=== PATIENT | male | born 1955 | race Caucasian/White ===

== ENCOUNTER 2019-11-29 10:20 | Emergency (ER) | payer OTHER, SELFPAY ==
[2019-11-29] VITALS (14 sets, daily range): BP systolic 134–152; BP diastolic 76–93; PULSE 74–115; RESP 15–20; TEMP 37.5; O2SAT 97–100
--- NOTE | ~2019-11-29 | XR_ITS ---
EXAMINATION: XR chest 2V EXAM DATE: 11/29/2019 10:45 INDICATION: Heart palpitations. TECHNIQUE: Frontal and lateral projections of the chest obtained and reviewed. Comparison is made to prior examination from 06/24/2018. FINDINGS: The lungs are clear. There are no pleural effusions. The cardiomediastinal silhouette is within normal limits. There is no pneumothorax suspected. The bones and soft tissues are unremarkab le. IMPRESSION: No acute cardiopulmonary findings. Reviewed, dictated and finalized at location A.
--- NOTE | ~2019-11-29 | CT_ITS ---
EXAMINATION: CTA chest PE protocol EXAM DATE: 11/29/2019 12:02 INDICATION: Shortness of breath, tachycardia. Prostate cancer. TECHNIQUE: Spiral CTA of the chest (pulmonary arteries) was performed with 100 cc Omnipaque 350 intr avenous contrast injection. Images were acquired during the pulmonary arterial phase. Coronal maxi mum intensity projection 3D-reconstructions were created by the technologist on dedicated workstation . Axial, coronal and sagittal reformatted images were reviewed. The dose-length product (DLP) for t his examination was 342.51 mGy-cm. The exposure was tailored according to patient size (auto mA exp osure control), and iterative reconstruction (ASIR) was used as additional dose reduction technique. There is no prior study for comparison. FINDINGS: Pulmonary arteries are well opacified and without intraluminal filling defects. No thora cic aortic dissection. The lungs are clear. There are no pleural or pericardial effusions. Trach eobronchial tree is patent. There is no mediastinal, hilar or axillary lymphadenopathy. There is no pneumothorax. Heart normal in size. There is mild coronary arterial calcification, arterial sc lerosis. Hepatic steatosis. There is thoracic spondylosis without osteoblastic or osteolytic lesion s identified. IMPRESSION: 1. No pulmonary emboli or acute cardiopulmonary findings. 2. Hepatic steatosis. Reviewed, dictated and finalized at location A.
--- NOTE | 2019-11-29 10:25 | ECG_ITS ---
Measurements Intervals [place] Rate: 123 P: 82 VA: 178 QRS: 63 QRSD: 92 T: 69 QT: 278 QTc: 399 Interpretive Statements SINUS TACHYCARDIA DELAYED PRECORDIAL R/S TRANSITION BASELINE WANDER- AVR, AVL, V5 ABNORMAL ECG Electronically Signed On 11-29-2019 15:06:17 CDT by Puma Ma D.O.
--- NOTE | 2019-11-29 10:37 | ED.ARRPALP ---
HPI - Arrhythmia/Palpitations General Chief Complaint: Arrhythmia/Palpitations Stated Complaint: heart racing Time Seen by Provider: 11/29/19 10:23 Source: patient and family Mode of arrival: ambulatory Limitations: no limitations History of Present Illness HPI narrative: Patient is a 63-year-old man presents to emergency who presents to emergency department for evaluation of palpitations that began this morning coupled with anxiety patient had drank alcohol prior evening but denies intoxication patient notes that he slept fine last night and had felt fine prior day patient denies any pain recent illness patient does note anxiety with recent prostate cancer diagnosis with planned surgery in the near future. Patient on arrival appears acutely anxious but in no distress and does not appear uncomfortable. Patient has not taken anything for his symptoms. Patient notes a year ago he had experienced similar symptoms with no medications or other treatments had thorough evaluation to include cardiology with stress test echocardiogram cardiac enzymes and hospital admission Related Data Home Medications Medication Instructions Recorded Confirmed allopurinol DAILY 11/29/19 Allergies Allergy/AdvReac Type Severity Reaction Status Date / Time No Known Allergies Allergy Verified 11/29/19 10:41 Review of Systems Review of Systems: All systems reviewed & are unremarkable except as noted in HPI and below PMFSH Past Medical History Medical History (Updated 11/29/19 @ 12:53 by Alfonso Mckeon PA-C) Prostate cancer Social History Social History (Updated 11/29/19 @ 10:50 by Alfonso Mckeon PA-C) Smoking status: Never smoker Alcohol intake: current Substance use type: marijuana Living arrangements: with family Exam Narrative: Exam Narrative: GENERAL: Well-appearing, well-nourished, and in no acute distress. HEAD: Normocephalic, atraumatic. EYES: PERRLA and EOMI. ENT: Nares clear, no rhinorrhea or epistaxis. Mucous membranes moist. Oropharynx without tonsillar hypertrophy exudate or other lesions. NECK: Supple. No adenopathy or masses. CHEST: Clear to auscultation. No respiratory distress. No wheezes rales or rhonchi HEART: Tachycardic rate and regular rhythm. No murmur heard. Normal peripheral pulses. ABDOMEN: Soft, nontender, nondistended EXTREMITIES: Normal range of motion. No edema. SKIN: Warm, dry, no rash. NEURO: No focal deficits. Alert and oriented x3. PSYCH: Normal mood slightly anxious and normal affect. Course Course Emergency Course: Patient in the room at this time resting comfortably in no distress with resolution of symptoms with fluids and anti-anxiolytics patient felt appropriate for outpatient reevaluation by primary care patient provided with reasons to return felt appropriate for outpatient reevaluation by primary care Vital Signs Vital signs: Vital Signs Temperature 99.5 F 11/29/19 10:26 Pulse Rate 115 H 11/29/19 10:26 Respiratory Rate 18 11/29/19 10:26 Blood Pressure 152/93 H 11/29/19 10:26 Pulse Oximetry 97 11/29/19 10:26 Temperature 99.5 F 11/29/19 10:26 Pulse Rate 96 11/29/19 12:15 Respiratory Rate 15 11/29/19 12:15 Blood Pressure 145/83 H 11/29/19 11:46 Pulse Oximetry 99 11/29/19 12:15 MDM - Arrhythmia/Palpitations MDM Narrative Medical decision making narrative: Patients EKGs and labs are without significant high risk changes. Cardiac risk factors were reviewed. Patient is felt likely to be low risk for ACS and reasonable for further risk stratification testing as an outpatient. Patient is without pain and resting comfortably with all symptoms resolved. Negative CTA of the chest. A low-risk Wells criteria is noted. PE is felt to be unlikely. No pneumonia or URI symptoms were seen on evaluation today. Patient is felt to be resonable for continued evaluation as an outpatient. Lab Data Result diagrams: 11/29/19 10:33 11/29/19
[2019-11-29 10:45] LABS: Basophils Percent Auto 0.5 % (0.2-1.2); Eosinophils Percent Auto 0.3 % (0-4.4); Hematocrit 45.9 % (42.0-52.0); Hemoglobin 16.3 g/dL (14.0-18.0); Immature Granulocyte Absolute 0.03 K/mm3 (0.00-0.031); Immature Granulocyte Percent A 0.4 % (0-0.5); Immature Platelet Fraction Pct 4.1 % (0.9-11.2); Lymphocytes Absolute Auto 0.68 K/mm3 (0.9-3.2); Lymphocytes Percent Auto 8.9 % (18.3-44.2); Mean Corpuscular HGB Conc 35.5 g/dl (32-36); Mean Corpuscular Hemoglobin 34.7 pg (26-34); Mean Corpuscular Volume 97.7 fl (80-100); Mean Platelet Volume 10.2 fl (7.4-10.4); Monocytes Absolute Auto 0.5 K/mm3 (0.1-0.6); Neutrophils Absolute Auto 6.4 K/mm3 (1.3-6.7); Neutrophils Percent Auto 82.9 % (45.5-73.1); Platelet Count Result 136 k/mm3 (150-375); Red Cell Distribution Width 11.6 % (11.5-14.5); White Blood Count 7.7 K/mm3 (4.5-10.0)
[2019-11-29] MEDS: ASPIRIN 81 MG CHEWABLE TABLET 324 MG PO (10:50)
[2019-11-29] MEDS: LACTATED RINGERS 1,000 ML 999 ML IV CONT (10:50)
[2019-11-29 10:54] LABS: INR 1.1; Prothrombin Time 13.8 Seconds (11.1-14.7)
[2019-11-29] MEDS: FAMOTIDINE 20 MG/2 ML VIAL IV PUSH (10:54)
[2019-11-29 10:55] LABS: Partial Thromboplastin Time 28.4 SECONDS (22.3-36.8)
[2019-11-29] MEDS: LORazepam INJ (*CRX) 2 MG/ML VIAL 1 MG IV PUSH (10:55)
[2019-11-29 10:56] LABS: Anion Gap 12 mmol/L (8-16); Blood Urea Nitrogen 24 mg/dL (9-20); Calcium 9.7 mg/dL (8.4-10.2); Carbon Dioxide 26 mmol/L (22-30); Chloride 101 mmol/L (98-107); Estimated CRCL calculation 70 ml/min; Estimated Glomerular Filt Rate > 60; Glucose 135 mg/dL (75-110); Potassium 4.2 mmol/L (3.4-5.0); Sodium 139 mmol/L (137-145)
[2019-11-29 10:57] LABS: D Dimer 1.18 ug/mL (<0.48)
[2019-11-29 11:08] LABS: Troponin I < 0.012 ng/mL (0.000-0.034)
--- NOTE | 2019-11-29 11:54 | PC.NURSE ---
Pt in CT.
[2019-11-29 12:00] LABS: Amphetamine Screen Urine Negative (Negative); Barbiturate Screen Urine Negative (Negative); Benzodiazepines Screen Urine Negative (Negative); Cannabinoid Screen Urine Positive (Negative); Cocaine Screen Urine Negative (Negative); Methadone Screen Urine Negative (Negative); Opiate Screen Urine Negative (Negative); Phencyclidine Screen Urine Negative (Negative)
[2019-11-29] MEDS: SODIUM CHLORIDE 0.9% IV 1,000 ML 999 ML IV CONT (12:10)
== END 2019-11-29 13:19 | disposition home or self-care (01) ==
PROVIDERS: Emergency Medicine Emergency Medical Services; Emergency Provider Emergency Medicine; PCP Family Medicine Adolescent Medicine
DX: R00.2 Palpitations (principal); Z85.46 Personal history of malignant neoplasm of prostate; R00.0 Tachycardia, unspecified; K76.0 Fatty (change of) liver, not elsewhere classified; Z79.899 Other long term (current) drug therapy
CPT/HCPCS: 36415; 71046; 71275; 80048; 80307; 84484; 85025; 85055; 85380; 85610; 85730; 93005; 96361; 96374; 96375; 99284; A9270; J2060; J7030; J7120; Q9967

== ENCOUNTER 2019-12-05 11:44 | Outpatient (CLI) | payer OTHER, SELFPAY ==
--- NOTE | 2019-12-05 12:37 | ECG_ITS ---
Measurements Intervals [place] Rate: 85 P: 61 OR: 159 QRS: -3 QRSD: 92 T: 29 QT: 352 QTc: 419 Interpretive Statements SINUS RHYTHM VENTRICULAR PREMATURE COMPLEX DELAYED PRECORDIAL R/S TRANSITION BASELINE ARTIFACT- III, AVR, AVL, V2-V3 BORDERLINE ECG Electronically Signed On 12-05-2019 12:56:46 CDT by Puma Ma D.O.
[2019-12-05 13:05] LABS: Alanine Aminotransferase 73 U/L (4-50); Albumin Level 4.6 g/dL (3.5-5.1); Alkaline Phosphatase 72 U/L (38-126); Anion Gap 8 mmol/L (8-16); Aspartate Amino Transferase 81 U/L (17-59); Bilirubin,Total 1.2 mg/dL (0.2-1.3); Blood Urea Nitrogen 18 mg/dL (9-20); Calcium 9.6 mg/dL (8.4-10.2); Carbon Dioxide 31 mmol/L (22-30); Chloride 100 mmol/L (98-107); Estimated Glomerular Filt Rate > 60; Glucose 113 mg/dL (75-110); Potassium 4.4 mmol/L (3.4-5.0); Sodium 139 mmol/L (137-145)
== END 2019-12-05 11:45 | disposition home or self-care (01) ==
LOC: ANHSURGERY 11:46
PROVIDERS: PCP Internal Medicine; Visit Provider Urology
DX: Z01.818 Encounter for other preprocedural examination (principal); C61 Malignant neoplasm of prostate
CPT/HCPCS: 36415; 80053; 86850; 86900; 86901; 87086; 93005

== ENCOUNTER 2019-12-13 00:20 | Outpatient (CLI) | payer OTHER, SELFPAY ==
[2019-12-13 17:37] LABS: SARS-CoV-2 RNA PCR Negative
== END 2019-12-13 00:21 | disposition home or self-care (01) ==
LOC: ANHCOVIDDT 00:21
PROVIDERS: PCP Internal Medicine; Visit Provider Urology
DX: Z01.812 Encounter for preprocedural laboratory examination (principal); Z20.828 Contact with and (suspected) exposure to other viral communicable diseases
CPT/HCPCS: 87635; C9803; U0003

== ENCOUNTER 2019-12-17 13:15 | Observation (INO) | payer OTHER, SELFPAY ==
[2019-12-05 11:59] VITALS: BP 160/84; PULSE 80; RESP 16; TEMP 37.5; O2SAT 100; BMI 23.1
--- NOTE | 2019-12-15 15:11 | WPDANESEPPF ---
Anes - Initial Pre Proc Eval Procedure: Operation Date: 12/16/19 07:30 Proposed Procedures p Robotic Assisted Nerve Sparing Prostatectomy with Possible Pelvic Lymph Node Dissection - Camilo Quesada MD Date/Time: 12/15/19 15:11 Surgeon: Camilo Quesada MD Pre Op Diagnosis: prostate CA Patient Data Age: 63 Gender: M Height: 1.8 m Weight: 75 kg Last Vital Signs Temp 37.5 C 12/05/19 11:59 Pulse 80 12/05/19 11:59 Resp 16 12/05/19 11:59 BP 160/84 H 12/05/19 11:59 Pulse Ox 100 12/05/19 11:59 Allergies Allergy/AdvReac Type Severity Reaction Status Date / Time No Known Allergies Allergy Verified 12/05/19 11:54 Home Medications Medication Instructions Recorded Confirmed Type allopurinol 300 mg PO QAM 11/29/19 12/05/19 History cholecalciferol (vitamin D3) 50 mcg PO DAILY 12/05/19 12/05/19 History turmeric 500 mg PO QAM 12/05/19 12/05/19 History PMFSH Past Medical History Medical History (Updated 11/30/19 @ 00:00 by Yessi Ron) Prostate cancer Social History Social History (Updated 11/29/19 @ 10:50 by Alfonso Mckeon PA-C) Smoking status: Never smoker Second hand tobacco smoke exposure: No Alcohol intake: current Drinks per week: 7 Substance use: current Substance use type: marijuana Other substance usage details: GUMMAES Spiritual care concerns: No Anes - Eval Final PreProcedure Day of Procedure 12/15/19 15:11 Patient weight: normal Heart: regular rate and rhythm Lungs: clear to auscultation and normal air movement Airway: Mallampati scale class II Neurological: alert and oriented Last oral intake: >/= 8 hours ASA classification: III Emergent: no Anesthetic plan: proceed Anesthesia type and monitoring: general ETT Informed Consent: The patient's anesthetic plan and its attendant risks and benefits were discussed with the patient/family/POA. Questions were solicited and answers provided to the satisfaction of the patient/family/POA.
[2019-12-16] VITALS (18 sets, daily range): BP systolic 103–136; BP diastolic 51–82; PULSE 70–98; RESP 9–22; TEMP 36.4–36.9; O2SAT 92–100
--- NOTE | 2019-12-16 07:05 | WPDANESEPPF ---
Anes - Initial Pre Proc Eval Procedure: Operation Date: 12/16/19 07:30 Proposed Procedures p Robotic Assisted Nerve Sparing Prostatectomy with Possible Pelvic Lymph Node Dissection - Camilo Quesada MD Date/Time: 12/16/19 07:05 Surgeon: Camilo Quesada MD Pre Op Diagnosis: prostate CA Patient Data Age: 63 Gender: M Height: 5 ft 11 in Weight: 71.3 kg Last Vital Signs Temp 97.5 F L 12/16/19 06:14 Pulse 98 12/16/19 06:14 Resp 20 12/16/19 06:14 BP 125/82 12/16/19 06:14 Pulse Ox 100 12/16/19 06:14 Allergies Allergy/AdvReac Type Severity Reaction Status Date / Time No Known Allergies Allergy Verified 12/16/19 06:19 Home Medications Medication Instructions Recorded Confirmed Type allopurinol 300 mg PO QAM 11/29/19 12/16/19 History cholecalciferol (vitamin D3) 50 mcg PO DAILY 12/05/19 12/16/19 History turmeric 500 mg PO QAM 12/05/19 12/16/19 History metoprolol tartrate 12.5 mg PO BID 12/16/19 12/16/19 History Patient hx anesthesia problems: none Family hx anesthesia problems: none [facility] Past Medical History Medical History (Updated 12/16/19 @ 07:05 by Danny Fabian MD) Anxiety Arthritis Prostate cancer Social History Social History (Updated 11/29/19 @ 10:50 by Alfonso Mckeon PA-C) Smoking status: Never smoker Second hand tobacco smoke exposure: No Alcohol intake: current Drinks per week: 7 Alcohol use details: VODKA Substance use: current Substance use type: marijuana Other substance usage details: ZAIDA Living arrangements: with family Spiritual care concerns: No Anes - Eval Final PreProcedure Day of Procedure 12/16/19 07:05 Patient weight: normal Heart: regular rate and rhythm Lungs: clear to auscultation Airway: Mallampati scale class II Neurological: alert and oriented Last oral intake: >/= 8 hours ASA classification: III Emergent: no Anesthetic plan: proceed Anesthesia type and monitoring: general ETT and standard monitoring Informed Consent: The patient's anesthetic plan and its attendant risks and benefits were discussed with the patient/family/POA. Questions were solicited and answers provided to the satisfaction of the patient/family/POA.
--- NOTE | 2019-12-16 07:15 | WPDHPUPDATE1 ---
History and Physical Update Update Date/Time: 12/16/19 07:15 History and Physical has been reviewed, including an updated exam of the patient. There are NO changes in the patient's condition. Risks, benefits, and alternatives have been discussed and questions answered. Patient agrees to proceed with procedure. Proceed with robotic assist nerve sparing prostatectomy with possible PLND
--- NOTE | 2019-12-16 07:20 | SUR.PREOP ---
Dr Fabian aware no stress test results/okay to proceed per Chanel Matamoros RN
[2019-12-16] MEDS: ceFAZolin 2 GM/D5W 50 ML 2 GM/50 ML BAG IVPB (07:29)
--- NOTE | 2019-12-16 11:54 | PM.PROC ---
Procedure Note - Detailed Date of procedure: 12/16/19 Pre-op diagnosis: prostate CA Post-op diagnosis: same Procedure performed: Robotic assisted nerve-sparing prostatectomy with right pelvic lymph node dissection Description of procedure: Patient is taken to the operative suite and correctly identified. Once anesthesia was obtained was placed in the low lying dorsal lithotomy position. He was prepped and draped usual sterile fashion. Eighteen Mongolian Armando was inserted with 30 cc in the balloon. Incision was made supraumbilical and carried down to the rectus fascia. Veress needle was inserted into the abdomen and the abdomen was insufflated to 15 mmHg pressure. We then placed the camera port under direct vision. We placed our working ports in the standard locations. Patient was placed in steep Trendelenburg position and the robot was docked. Posterior approach was then done. We did take down some adhesions of the left colon. The seminal vesicles were dissected out in their entirety the vessels were transected. The plane between the prostate and rectum developed. Bladder was then taken to standard fashion. Space of Retzius was developed bilaterally. 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 This was dissected off of the prostate. It was nicely spared. Both endopelvic fascia were then also incised. Puboprostatic were taken down. Dorsal venous complex was isolated using an 0 Vicryl. This was secured to the pubic bone. At the termination of procedure we did place a V- lock suture through the dorsal venous complex for added hemostasis. The bladder neck was then transected it was a bladder neck sparing procedure. Posterior bladder neck was transected also. The previously dissected seminal vesicles and vas were found. Bilateral nerve-sparing was performed in standard fashion. The pedicles were secured using clips. Prostate was lifted off the rectum. Dorsal venous complex was then transected. Urethra was also transected. It had a nice urethral stump. We then did a right pelvic lymph node dissection with the borders being Jet's ligament bifurcation of the vessels obturator nerve and external iliac vein. Surgicel was then placed in the fossa. The packet as well as the prostate was placed in Endo-Catch bag. We then reapproximated the bladder neck to the urethral stump using V lock suture in a running fashion. There was good mucosa to mucosa approximation. Eighteen Mongolian Armando was placed inflated with 10 cc of sterile water. We filled the bladder with 180 cc in the was no evidence of extravasation. All lap count needle count sponge counts were correct. A JAJA drain was then placed through the working port site on the right. This was secured. The trocars were then removed. The Endo-Catch bag was brought out through the midline incision. This was closed using 0 Vicryl in a running fashion. Subcuticular stitches were then placed. Patient tolerated procedure well without complications and was taken recovery stable condition. We did anesthetize the incision and port sites using lidocaine. Surgeon: Camilo Quesada MD Estimated blood loss (mL): 300 Drains: Yes Packing: No Pathology: yes Complications: No immediate complications Condition: stable Disposition: PACU
[2019-12-16] MEDS: LACTATED RINGERS 1,000 ML 30 ML IV CONT ×3 (12:12→13:05)
[2019-12-16] MEDS: fentaNYL CITRATE INJ (*CRX) 100 MCG/2 ML VIAL 25 MCG IV PUSH ×8 (13:07→13:50)
--- NOTE | 2019-12-16 14:23 | PC.NURSE ---
This patient, Juan Vyas, was admitted to [facility] Surg Room 304-01 on 12/16/19 @ 4399. Patient/family oriented to hospital policies and general routines including ID bracelet, bed and alarms, visiting hours, pain management, procedures, bathroom and other care routines, personal items, smoking policy, room service/diet, and visiting hours. Information on how to activate the Rapid Response Team has been discussed. Patient/Family are encouraged to report perceived risks to care and to ask questions if they do not understand what they are told or what they should do.
[2019-12-16] MEDS: LACTATED RINGERS 1,000 ML 125 ML IV CONT ×2 (14:51→22:54)
[2019-12-16] MEDS: HYDROcodone/acetaminophen (*CRX) 5-325 MG TABLET 1 TAB PO (16:48)
[2019-12-17] VITALS: BP 110/57; PULSE 88; RESP 16; TEMP 37.1; O2SAT 98
--- NOTE | ~2019-12-17 | US_ITS ---
EXAMINATION: US pelvic limited DATE: 12/17/2019 11:09 INDICATION: Gross hematuria with clots status post prostatectomy. TECHNIQUE: Multiple transabdominal sonographic images of the pelvis were obtained. COMPARISON: None. FINDINGS: There is a Armando catheter in the bladder. There is no hematoma. IMPRESSION: 1. Normal bladder with Armando catheter in expected position. Reviewed, dictated and finalized at location A.
[2019-12-17] MEDS: HYDROcodone/acetaminophen (*CRX) 5-325 MG TABLET 1 TAB PO ×2 (01:13→12:31)
[2019-12-17 04:00] VITALS: BP 119/53; PULSE 76; RESP 16; TEMP 36.8; O2SAT 100
[2019-12-17] MEDS: KETOROLAC 30 MG/ML VIAL (*BKC) IV PUSH (05:15)
[2019-12-17 06:36] LABS: Hematocrit 37.3 % (42.0-52.0); Hemoglobin 12.7 g/dL (14.0-18.0)
[2019-12-17 06:47] LABS: Anion Gap 4 mmol/L (8-16); Blood Urea Nitrogen 12 mg/dL (9-20); Calcium 8.2 mg/dL (8.4-10.2); Carbon Dioxide 31 mmol/L (22-30); Chloride 100 mmol/L (98-107); Estimated CRCL calculation 82 ml/min; Estimated Glomerular Filt Rate > 60; Glucose 106 mg/dL (75-110); Sodium 135 mmol/L (137-145)
[2019-12-17] MEDS: LACTATED RINGERS 1,000 ML 125 ML IV CONT ×3 (07:19→23:10)
[2019-12-17] MEDS: WATER FOR IRRIGATION, STERILE 1,000 ML BOTTLE 1000 ML ×2 (08:45→13:14)
[2019-12-17 10:00] VITALS: BP 140/63; PULSE 82; RESP 18; TEMP 36.9; O2SAT 99
--- NOTE | 2019-12-17 13:03 | WPDUROPN2 ---
Progress Note: A&P Assessment and Plan (1) Gross hematuria: Code(s): R31.0 - Gross hematuria Status: Acute Assessment and Plan: Patient's rosas was irrigated manually with 600cc of Sterile Water this morning, many small clots were extracted, irrigated easily, rosas was in place and draining well but with salazar red colored urine. I sent him for an US to confirm that no larger clots were present, it was negative. He was then irrigated a second time this afternoon by Dr. Eden and many more clots were present, irrigated easily but urine cleared to a pink color and continues to drain well. No further intervention at this time, may irrigate PRN. (2) Prostate cancer: Code(s): C61 - Malignant neoplasm of prostate Status: Acute Assessment and Plan: Other than gross hematuria, patient is doing well, passing flatus, tolerating diet well, and pain is controlled with medications. We will keep him overnight to monitor gross hematuria and re-assess in the morning. Subjective Subjective Date/Time Seen: 12/17/19 13:03 POD #1 Robotic assisted nerve-sparing prostatectomy with right pelvic lymph node dissection Review of Systems Cardiovascular: Cardiovascular: Denies chest pain Respiratory: Respiratory: Denies no additional respiratory complaints Gastrointestinal: Gastrointestinal: Reports abdominal pain (at incision site), Denies nausea and Denies vomiting Genitourinary: Genitourinary: Reports hematuria Exam Resp: Effort & Inspection: normal respiratory effort Cardio: Rate: regular rate GI: GI Palp: Yes Soft to palpation and Yes Tenderness to palpation present (GI) (at incision sites, all are well approximated, no redness, drainage or edema) Urinary Catheter: Urinary Catheter: patent and draining, urine red and urine with clots Extrem: General: no edema Objective Data Vital Signs Vital Signs: Vital Signs - 24 hr 12/16/19 13:15 12/16/19 13:30 12/16/19 13:45 Temperature Pulse Rate 79 80 74 Respiratory Rate 19 22 H 15 Blood Pressure 111/67 106/64 119/71 Pulse Oximetry 92 94 97 12/16/19 14:00 12/16/19 14:13 12/16/19 14:25 Temperature 97.8 F Pulse Rate 88 85 80 Respiratory Rate 12 12 18 Blood Pressure 114/67 110/65 120/71 Pulse Oximetry 100 100 100 12/16/19 14:40 12/16/19 15:00 12/16/19 16:00 Temperature 97.5 F L 97.5 F L Pulse Rate 90 83 94 Respiratory Rate 18 18 18 Blood Pressure 123/77 135/65 Pulse Oximetry 100 99 100 12/16/19 16:10 12/16/19 18:00 12/16/19 20:00 Temperature 97.8 F 98.5 F 98.1 F Pulse Rate 94 96 92 Respiratory Rate 18 18 20 Blood Pressure 136/77 130/68 109/51 L Pulse Oximetry 100 99 100 12/17/19 00:00 12/17/19 04:00 12/17/19 10:00 Temperature 98.8 F 98.3 F 98.4 F Pulse Rate 88 76 82 Respiratory Rate 16 16 18 Blood Pressure 110/57 L 119/53 L 140/63 Pulse Oximetry 98 100 99 Intake/Output Intake/Output: Intake & Output 12/14/19 12/15/19 12/16/19 12/17/19 23:59 23:59 23:59 23:59 Intake Total 4330 2200 Output Total 3550 900 Balance 780 1300 Meds/Results Medications: Active Medications Generic Name Dose Route Start Last Admin Trade Name Freq PRN Reason Stop Dose Admin Hydrocodone Bitart/Acetaminophen 1 tab 12/16/19 14:15 12/17/19 12:31 Hydrocodone/Acetaminophen (*Crx) 5-325 Mg Tablet PO 1 tab Q6H PRN Administration Pain Rated 1-3 Hydrocodone Bitart/Acetaminophen 2 tab 12/16/19 14:15 Hydrocodone/Acetaminophen (*Crx) 5-325 Mg Tablet PO Q6H PRN Pain Rated 4-6 Hyoscyamine 0.125 mg 12/16/19 14:15 Hyoscyamine Sulfate 0.125 Mg Tablet SUBLINGUAL Q4H PRN Bladder Spasm Lactated Ringer's 1,000 mls @ 125 mls/hr 12/17/19 13:05 Lr - Lactated Ringers Iv IV CONT .Q8H ROBSON Ketorolac Tromethamine 30 mg 12/16/19 14:15 12/17/19 05:15 Ketorolac 30 Mg/Ml Vial (*Bkc) IV PUSH 12/17/19 14:16 30 mg Q6H PRN Administration Pain Rated 4-6 Levofloxacin 500 mg 1
--- NOTE | 2019-12-17 13:06 | WPDANESPN ---
Anes - Prog Note Post-Op Date/Time: 12/17/19 13:06 Cardiovascular status: normal Respiratory status: normal Airway patency: baseline Mental status: baseline Post-Op hydration status: normal Vital Signs: Last Vital Signs Temp 98.4 F 12/17/19 10:00 Pulse 82 12/17/19 10:00 Resp 18 12/17/19 10:00 BP 140/63 12/17/19 10:00 Pulse Ox 99 12/17/19 10:00 Pain Score (VAS): 0/10 I/O: Intake & Output 12/16/19 12/17/19 12/17/19 23:59 07:59 15:59 Intake Total 3180 2200 700 Output Total 3255 900 Balance -75 1300 700 Laboratory Tests 12/17/19 05:50 12/17/19 05:50 12/17/19 12/17/19 05:50 05:50 Hgb 12.7 L D Hct 37.3 L Sodium 135 L Potassium 4.0 Chloride 100 Carbon Dioxide 31 H Anion Gap 4 L BUN 12 D Creatinine 0.80 Estim Creat Clear Calc 82 Estimated GFR > 60 Glucose 106 Calcium 8.2 L Post-procedural complaints: none Patient Feedback: Patient satisfied with anesthetic care.
[2019-12-17 14:00] VITALS: BP 122/69; PULSE 95; RESP 18; TEMP 37.5; O2SAT 100
[2019-12-17] MEDS: HYDROcodone/acetaminophen (*CRX) 5-325 MG TABLET 2 TAB PO ×2 (17:31→22:31)
[2019-12-17 20:32] VITALS: PULSE 80
[2019-12-17] MEDS: METOPROLOL TARTRATE 12.5 MG TABLET PO (20:32)
[2019-12-17 21:51] VITALS: BP 123/72; PULSE 81; RESP 18; TEMP 37; O2SAT 100
[2019-12-18] MEDS: HYDROcodone/acetaminophen (*CRX) 5-325 MG TABLET 2 TAB PO (03:47)
[2019-12-18 05:51] VITALS: BP 131/66; PULSE 71; RESP 18; TEMP 36.8; O2SAT 99
[2019-12-18] MEDS: LACTATED RINGERS 1,000 ML 125 ML IV CONT (07:25)
[2019-12-18 08:00] VITALS: PULSE 71; RESP 18; O2SAT 99
--- NOTE | 2019-12-18 08:32 | WPDUROPN2 ---
Progress Note: A&P Assessment and Plan (1) Gross hematuria: Code(s): R31.0 - Gross hematuria Status: Acute Assessment and Plan: Resolved, urine is light pink, no clots present and draining to gravity. (2) Prostate cancer: Code(s): C61 - Malignant neoplasm of prostate Status: Acute Assessment and Plan: Patient is tolerating diet, passing flatus and pain is controlled with pain medicaitons. Ok to discharge home today with leg bag. Remove JAJA drain. Subjective Subjective Date/Time Seen: 12/18/19 08:32 POD #2 Robotic assisted nerve-sparing prostatectomy with right pelvic lymph node dissection Review of Systems Cardiovascular: Cardiovascular: Denies chest pain Respiratory: Respiratory: Reports no additional respiratory complaints Gastrointestinal: Gastrointestinal: Denies abdominal pain, Denies nausea and Denies vomiting Genitourinary: Genitourinary: Reports hematuria Exam Resp: Effort & Inspection: normal respiratory effort Cardio: Rate: regular rate GI: GI Palp: Yes Soft to palpation and Yes Tenderness to palpation present (GI) (at incisions only) Urinary Catheter: Urinary Catheter: patent and draining, urine clear and urine pink Extrem: General: no edema Objective Data Vital Signs Vital Signs: Vital Signs - 24 hr 12/17/19 10:00 12/17/19 14:00 12/17/19 20:32 Temperature 98.4 F 99.5 F Pulse Rate 82 95 80 Respiratory Rate 18 18 Blood Pressure 140/63 122/69 Pulse Oximetry 99 100 12/17/19 21:51 12/18/19 05:51 Temperature 98.6 F 98.3 F Pulse Rate 81 71 Respiratory Rate 18 18 Blood Pressure 123/72 131/66 Pulse Oximetry 100 99 Intake/Output Intake/Output: Intake & Output 12/15/19 12/16/19 12/17/19 12/18/19 23:59 23:59 23:59 23:59 Intake Total 4330 6380 2450 Output Total 3550 3300 3750 Balance 780 3080 -1300 Meds/Results Medications: Active Medications Generic Name Dose Route Start Last Admin Trade Name Freq PRN Reason Stop Dose Admin Hydrocodone Bitart/Acetaminophen 1 tab 12/16/19 14:15 12/17/19 12:31 Hydrocodone/Acetaminophen (*Crx) 5-325 Mg Tablet PO 1 tab Q6H PRN Administration Pain Rated 1-3 Hydrocodone Bitart/Acetaminophen 2 tab 12/16/19 14:15 12/18/19 03:47 Hydrocodone/Acetaminophen (*Crx) 5-325 Mg Tablet PO 2 tab Q6H PRN Administration Pain Rated 4-6 Allopurinol 300 mg 12/18/19 09:00 Allopurinol 300 Mg Tablet PO QAM [facility] Hyoscyamine 0.125 mg 12/16/19 14:15 Hyoscyamine Sulfate 0.125 Mg Tablet SUBLINGUAL Q4H PRN Bladder Spasm Lactated Ringer's 1,000 mls @ 125 mls/hr 12/17/19 13:05 12/18/19 07:25 Lr - Lactated Ringers Iv IV CONT 125 mls/hr .Q8H ROBSON Administration Levofloxacin 500 mg 12/17/19 09:00 12/17/19 12:31 Levofloxacin Tab 500 Mg Tablet PO 500 mg DAILY [facility] Administration Metoprolol Tartrate 12.5 mg 12/17/19 21:00 12/17/19 20:32 Metoprolol Tartrate 12.5 Mg Tablet PO 12.5 mg Q12HR [facility] Administration Morphine Sulfate 1 mg 12/16/19 14:15 Morphine Sulfate (*Crx) 2 Mg/Ml Inj IV PUSH Q2H PRN Pain Rated 7-10 Morphine Sulfate 2 mg 12/16/19 14:15 Morphine Sulfate (*Crx) 2 Mg/Ml Inj IV PUSH Q2H PRN Pain Rated 7-10 Naloxone HCl 0.1 mg 12/16/19 14:15 Naloxone Hcl 0.4 Mg/Ml Vial IV PUSH Q2M PRN Opiate Reversal Non-Formulary Medication 500 mg 12/18/19 09:00 Turmeric PO 01/17/20 09:[facility] [place] 4 mg 12/16/19 14:15 Ondansetron Inj 4 Mg/2 Ml Vial IV PUSH Q6H PRN Nausea And Vomiting Vitamin D 2,000 units 12/18/19 09:00 Cholecalciferol 1,000 Units Tablet PO DAILY [facility] Radiology Results: ITS Impressions Pelvis Ultrasound 12/17/19 11:10 IMPRESSION: 1. Normal bladder with Armadno catheter in expected position.
--- NOTE | 2019-12-18 08:38 | PM.DS ---
DS: Admitting Diagnosis Admitting Diagnosis Admitting Diagnosis: prostate CA DS: Summary Time Spent with Patient Time attestation: Pre Op Diagnosis: Prostate Cancer Post Operative Diagnosis: Prostate Cancer Patient underwent a Robotic assisted nerve-sparing prostatectomy with right pelvic lymph node dissection on 12/16/[address] Suyapa Quesada. He tolerated the procedure well and was transferred to recovery in stable condition. He then was transferred to the floor for further recovery. He has managed to handle his pain well with medications, is tolerating diet and passing flatus at this time. He did have gross hematuria with clots POD #1, which resolved with manual irrigation. His urine is pink without clots today. He is to be discharged home, on diet as tolerated, activity no straining, will resume all home medications including Hydrocodone, stool softeners and antibiotics. He will follow up next Sunday for a cystogram and then to the office to hopefully remove his rosas. Exam Resp: Effort & Inspection: normal respiratory effort Cardio: Rate: regular rate GI: Inspection: incision (well approximated, no redness or edema present, JAJA drain minmial output) Urinary Catheter: Urinary Catheter: patent and draining, urine clear and urine pink Extrem: General: no edema DS: Data Data Completed and Pending Pending studies at discharge: Pending at discharge 12/16/19 10:50 Surgical [PTH] Routine Discharge Plan Discharge Attending physician on discharge: Camilo Quesada Discharging Clinician: Gianna Desai Anticipated Discharge Date/Time: 12/18/19 08:35 Patient Disposition: Home, Self-Care Activity: may shower, no straining and may drive after 2 weeks Diet: as tolerated Wound Care Instructions: remove dressing to shower and change dressing daily Discharge Instructions: Call if you develop a fever of >102, incisions appear to have drainage or are not well approximated, have redness or feel hot to touch. Change drain site dressing daily and PRN, wash with soap and water gently and pat dry. Do not remove surgical glue on other incisions. Follow up next Sunday after Cystogram in the office for rosas removal pending cystogram results. Patient Instructions: Pain Management (DC), Rosas Catheter Placement and Care (DC), Will-Faulkner Drain Care (DC), JORGITO Hose (DC), Urinary Leg Bag (GEN), Robot Assisted Laparoscopic Prostatectomy (DC), How to Change a Catheter Drainage Bag (DC) Follow-up/Referrals: Camilo Quesada MD [Physician] - Discharge Medications: Continued cholecalciferol (vitamin D3) 50 mcg (2,000 unit) Tablet 50 mcg PO DAILY RF: 0 turmeric 400 mg Capsule 500 mg PO QAM RF: 0 metoprolol tartrate 25 mg Tablet 12.5 mg PO BID RF: 0 allopurinol 300 mg tablet 300 mg PO QAM RF: 0 Date of admission: 12/17/19 13:15 Primary Care Provider: Codie,Sheron Admitting Provider: Camilo Quesada Attending physician on admission: Camilo Quesada
[2019-12-18] MEDS: allopurinoL 300 MG TABLET PO (09:09)
[2019-12-18] MEDS: CHOLECALCIFEROL 1,000 UNITS TABLET 2000 UNITS PO (09:09)
[2019-12-18] MEDS: METOPROLOL TARTRATE 12.5 MG TABLET PO (09:10)
[2019-12-18] MEDS: HYDROcodone/acetaminophen (*CRX) 5-325 MG TABLET 1 TAB PO ×2 (09:16→12:29)
== END 2019-12-18 12:30 | disposition home or self-care (01) ==
LOC: ANHSURGERY 13:35 → ANH3MEDSUR 13:35
PROVIDERS: Admitting Provider Urology; PCP Internal Medicine; Visit Provider Urology
PROC: 0VT04ZZ Resection of Prostate, Percutaneous Endoscopic Approach (ICD-10-PCS; CPT 55867; principal; 2019-12-16 07:30)
DX: C61 Malignant neoplasm of prostate (principal)
CPT/HCPCS: 55866; 38571; S2900; 36415; 76857; 80048; 85014; 85018; 88305; 88307; A9270; G0378; J0690; J1100; J1885; J2250; J2370; J2405; J2704; J2710; J3010; J7030; J7120

== ENCOUNTER 2019-12-24 08:57 | Outpatient (CLI) | payer OTHER, SELFPAY ==
--- NOTE | ~2019-12-24 | XR_ITS ---
XR cystogram DATE: 12/24/2019 09:52 INDICATION: Prostate cancer. One week postoperative from prostatectomy TECHNIQUE: Fluoroscopy and spot radiographs during filling and emptying of the urinary bladder with r adiopaque contrast material by gravity via an existing Armando catheter 1.3 minutes fluoroscopy time DAP: 22.65 13 images COMPARISON: None FINDINGS: The bladder accommodated 350 cc of dilute Omnipaque 350 intravenous contrast material. Small diverticulum is noted at the superolateral right side of the urinary bladder. No filling defect of the urinary bladder is noted. No vesicoureteral reflux or extravasation of contr ast material. IMPRESSION: No extravasation of contrast material from the urinary bladder Reviewed, dictated and finalized at [facility] Reviewed, dictated and finalized at [facility].
== END 2019-12-24 08:58 | disposition home or self-care (01) ==
PROVIDERS: PCP Internal Medicine; Visit Provider Urology
DX: C61 Malignant neoplasm of prostate (principal)
CPT/HCPCS: 51600; 74430; Q9967

== ENCOUNTER 2020-09-27 11:17 | Outpatient (CLI) | payer MEDICARE, SELFPAY ==
[2020-09-27 11:45] LABS: Basophils Percent Auto 0.6 % (0.2-1.2); Eosinophils Absolute Auto 0.1 K/mm3 (0-0.3); Hematocrit 44.2 % (42.0-52.0); Hemoglobin 15.3 g/dL (14.0-18.0); Immature Granulocyte Absolute 0.05 K/mm3 (0.00-0.031); Immature Granulocyte Percent A 0.7 % (0-0.5); Lymphocytes Absolute Auto 1.27 K/mm3 (0.9-3.2); Lymphocytes Percent Auto 18.5 % (18.3-44.2); Mean Corpuscular HGB Conc 34.6 g/dl (32-36); Mean Corpuscular Hemoglobin 34.1 pg (26-34); Mean Corpuscular Volume 98.4 fl (80-100); Mean Platelet Volume 9.4 fl (7.4-10.4); Monocytes Absolute Auto 0.7 K/mm3 (0.1-0.6); Monocytes Percent Auto 10.6 % (2.6-8.5); Neutrophils Absolute Auto 4.7 K/mm3 (1.3-6.7); Neutrophils Percent Auto 68.6 % (45.5-73.1); Platelet Count Result 155 k/mm3 (150-375); Red Blood Count 4.49 M/mm3 (4.6-6.20); Red Cell Distribution Width 11.6 % (11.5-14.5); White Blood Count 6.9 K/mm3 (4.5-10.0)
[2020-09-27 17:10] LABS: Alanine Aminotransferase 36 U/L (4-50); Albumin Level 4.6 g/dL (3.5-5.1); Alkaline Phosphatase 87 U/L (38-126); Anion Gap 8 mmol/L (8-16); Aspartate Amino Transferase 47 U/L (17-59); Bilirubin,Total 1.3 mg/dL (0.2-1.3); Blood Urea Nitrogen 25 mg/dL (9-20); Carbon Dioxide 28 mmol/L (22-30); Chloride 101 mmol/L (98-107); Estimated Glomerular Filt Rate > 60; Glucose 98 mg/dL (65-110); Sodium 137 mmol/L (137-145)
[2020-09-27 17:41] LABS: Thyroid Stimulating Hormone 0.888 uIU/mL (0.465-4.680)
[2020-09-27 18:44] LABS: Folic Acid > 20.0 ng/mL (2.76->20)
[2020-09-30 08:34] LABS: Methylmalonic Acid 162 nmol/L (87-318)
== END 2020-09-27 11:18 | disposition home or self-care (01) ==
PROVIDERS: PCP Internal Medicine; Visit Provider Internal Medicine Hematology & Oncology
DX: D75.89 Other specified diseases of blood and blood-forming organs (principal); R53.83 Other fatigue
CPT/HCPCS: 36415; 80053; 82607; 82746; 83921; 84443; 85025

== ENCOUNTER 2021-06-03 01:07 | Day surgery (SDC) | payer MEDICARE, SELFPAY ==
[2021-05-24 15:58] VITALS: BMI 24.5
[2021-06-03 06:33] VITALS: BP 138/103; PULSE 126; RESP 22; TEMP 36.2; O2SAT 100; BMI 23.9
[2021-06-03] MEDS: LACTATED RINGERS 1,000 ML 150 ML IV CONT (06:37)
--- NOTE | 2021-06-03 06:47 | P.PNAN_ITS ---
Anes - Initial Pre Proc Eval Procedure: Operation Date: 06/03/21 07:30 Proposed Procedures p Screening Colonoscopy - Von Bright MD Date/Time: 06/03/21 06:47 Surgeon: Von Bright MD Pre Op Diagnosis: hx of colon polyps Patient Data Age: 65 Gender: M Height: 1.8 m Weight: 77.9 kg Last Vital Signs Temp 36.2 C L 06/03/21 06:33 Pulse 126 H 06/03/21 06:33 Resp 22 H 06/03/21 06:33 BP 138/103 H 06/03/21 06:33 Pulse Ox 100 06/03/21 06:33 Allergies Allergy/AdvReac Type Severity Reaction Status Date / Time No Known Allergies Allergy Verified 06/03/21 06:33 Home Medications Medication Instructions Recorded Confirmed Type allopurinol 300 mg PO QAM 11/29/19 06/03/21 History metoprolol tartrate 12.5 mg PO BID 12/16/19 06/03/21 History nutritional supplement-fiber See Rx Instructions .ROUTE .COMPLEX 05/24/21 06/03/21 History [Juice Plus Fibre] Patient hx anesthesia problems: none Family hx anesthesia problems: none Results Review: All pre-operative results and documents have been reviewed as part of the pre-operative evaluation. [facility] Past Medical History Medical History (Updated 12/17/19 @ 13:05 by Gianna Desai APRN) Anxiety Arthritis Prostate cancer Surgical History Surgical History (Updated 06/03/21 @ 06:50 by Chris Box MD) H/O prostatectomy Hx of tonsillectomy Social History Social History Smoking status: Never smoker Second hand tobacco smoke exposure: No Alcohol intake: current Drinks per week: 7 Alcohol use details: 10 drinks a week Substance use: current Substance use type: marijuana Other substance usage details: edibles Living arrangements: with family Spiritual care concerns: No Anes - Eval Final PreProcedure Day of Procedure 06/03/21 06:47 Patient weight: normal Heart: regular rate and rhythm Lungs: clear to auscultation Airway: Mallampati scale class II Neurological: alert and oriented Last oral intake: >/= 8 hours ASA classification: II Emergent: no Anesthetic plan: proceed Anesthesia type and monitoring: general GIVS and standard monitoring Results Review: All pre-operative results and documents have been reviewed as part of the pre-operative evaluation. Informed Consent: The patient's anesthetic plan and its attendant risks and benefits were discussed with the patient/family/POA. Questions were solicited and answers provided to the satisfaction of the patient/family/POA.
[2021-06-03 06:56] VITALS: BP 122/60; PULSE 73
[2021-06-03] MEDS: SIMETHICONE ORAL SUSPENSION 20 MG/0.3 ML 30 ML BOTTLE 0.6 ML IRRIGATION (07:36)
--- NOTE | 2021-06-03 07:46 | WPDGICN ---
Assessment and Plan Assessment and plan (1) History of colon polyps: Code(s): Z86.010 - Personal history of colonic polyps Status: Acute Assessment and Plan: Patient has a prior history of colon polyps. Plan is for surveillance colonoscopy now and at 4-5 year intervals in the future. GI Consult Note Consult date/time: 06/03/21 07:46 HPI: Juan Vyas is a 65 year old male Presents for screening colonoscopy. Patient's current weight appetite bowel movements are normal. He denies abdominal pain. He has had no bleeding. Family history is noncontributory. Patient does report an uncle who had colon cancer. Patient himself has had colon polyps previously. In 2017 colonoscopy was unremarkable. He presents today for screening colonoscopy follow-up. Patient has a prior history of prostate resection for prostate cancer in. Currently no evidence for recurrence. Review of Systems Review of Systems: All systems reviewed & are unremarkable except as noted in HPI and below PMFSH Past Medical History Medical History (Updated 06/03/21 @ 07:48 by Von Bright MD) Anxiety Arthritis Prostate cancer Surgical History Surgical History (Updated 06/03/21 @ 06:50 by Chris Box MD) H/O prostatectomy Hx of tonsillectomy Social History Social History Smoking status: Never smoker Second hand tobacco smoke exposure: No Alcohol intake: current Drinks per week: 7 Alcohol use details: 10 drinks a week Substance use: current Substance use type: marijuana Other substance usage details: edibles Living arrangements: with family Spiritual care concerns: No Meds Home Medications and Allergies Home Medications Medication Instructions Recorded Confirmed Type allopurinol 300 mg PO QAM 11/29/19 06/03/21 History metoprolol tartrate 12.5 mg PO BID 12/16/19 06/03/21 History nutritional supplement-fiber See Rx Instructions .ROUTE .COMPLEX 05/24/21 06/03/21 History [Juice Plus Fibre] Allergies Allergy/AdvReac Type Severity Reaction Status Date / Time No Known Allergies Allergy Verified 06/03/21 06:33 Vital Signs Vital Signs - 24 hr 06/03/21 06:33 06/03/21 06:56 Temperature 97.1 F L Pulse Rate 126 H 73 Respiratory Rate 22 H Blood Pressure 138/103 H 122/60 Pulse Oximetry 100 Exam Narrative: Physical exam reveals patient to be alert. Vital signs stable. HEENT exam is unremarkable. Patient is anicteric. Lungs are clear to auscultation and percussion. Heart is without murmur or extra sounds. Abdominal exam bowel sounds are present soft nontender with no hepatosplenomegaly. Digital external rectal exam is normal.
[2021-06-03 07:47] VITALS: BP 121/71; PULSE 92; RESP 27; O2SAT 100
[2021-06-03 07:57] VITALS: BP 143/91; PULSE 73; RESP 20; O2SAT 100
[2021-06-03 08:07] VITALS: BP 147/93; PULSE 65; RESP 12; O2SAT 100
== END 2021-06-03 08:25 | disposition home or self-care (01) ==
PROVIDERS: PCP Internal Medicine; Visit Provider Internal Medicine Gastroenterology
PROC: 0DJD8ZZ Inspection of Lower Intestinal Tract, Via Natural or Artificial Opening Endoscopic (ICD-10-PCS; CPT 45378; principal; 2021-06-03 07:30)
DX: Z12.11 Encounter for screening for malignant neoplasm of colon (principal); D12.2 Benign neoplasm of ascending colon; K57.30 Diverticulosis of large intestine without perforation or abscess without bleeding; K64.8 Other hemorrhoids; Z85.46 Personal history of malignant neoplasm of prostate
CPT/HCPCS: 45385; 88305; J2704; J7120

== ENCOUNTER 2022-01-11 10:28 | Outpatient (CLI) | payer MEDICARE, SELFPAY ==
[2022-01-11 10:41] LABS: Basophils Percent Auto 0.7 % (0.2-1.2); Eosinophils Absolute Auto 0.1 K/mm3 (0-0.3); Eosinophils Percent Auto 1.1 % (0-4.4); Hematocrit 42.5 % (42.0-52.0); Hemoglobin 14.8 g/dL (14.0-18.0); Immature Granulocyte Absolute 0.04 K/mm3 (0.00-0.031); Immature Granulocyte Percent A 0.7 % (0-0.5); Lymphocytes Absolute Auto 1.42 K/mm3 (0.9-3.2); Lymphocytes Percent Auto 26.2 % (18.3-44.2); Mean Corpuscular HGB Conc 34.8 g/dl (32-36); Mean Corpuscular Hemoglobin 34.7 pg (26-34); Mean Corpuscular Volume 99.8 fl (80-100); Mean Platelet Volume 9.8 fl (7.4-10.4); Monocytes Absolute Auto 0.5 K/mm3 (0.1-0.6); Monocytes Percent Auto 9.8 % (2.6-8.5); Neutrophils Absolute Auto 3.3 K/mm3 (1.3-6.7); Neutrophils Percent Auto 61.5 % (45.5-73.1); Platelet Count Result 114 k/mm3 (150-375); Red Blood Count 4.26 M/mm3 (4.6-6.20); Red Cell Distribution Width 11.5 % (11.5-14.5); White Blood Count 5.4 K/mm3 (4.5-10.0)
[2022-01-11 10:44] LABS: Blood Urea Nitrogen 23 mg/dL (8-26); Carbon Dioxide 27 mmol/L (22-30); Chloride 104 mmol/L (98-109); Estimated Glomerular Filt Rate > 60; Glucose 105 mg/dL (70-105); Ionized Calcium (POC) 1.24 mmol/L (1.11-1.31); Potassium 4.6 mmol/L (3.5-4.9); Sodium 140 mmol/L (138-146)
[2022-01-11 13:04] LABS: Alanine Aminotransferase 79 U/L (6-50); Albumin Level 4.6 g/dL (3.5-5.1); Alkaline Phosphatase 96 U/L (38-126); Anion Gap 10 mmol/L (8-16); Aspartate Amino Transferase 96 U/L (17-59); Bilirubin,Total 1.1 mg/dL (0.2-1.3); Blood Urea Nitrogen 23 mg/dL (9-20); Calcium 9.4 mg/dL (8.4-10.2); Carbon Dioxide 25 mmol/L (22-30); Chloride 103 mmol/L (98-107); Estimated Glomerular Filt Rate > 60; Glucose 105 mg/dL (65-110); Potassium 4.6 mmol/L (3.4-5.0); Sodium 138 mmol/L (137-145)
== END 2022-01-11 10:29 | disposition home or self-care (01) ==
LOC: ANHLAB 10:30
PROVIDERS: PCP Internal Medicine; Visit Provider Internal Medicine Hematology & Oncology
DX: D75.89 Other specified diseases of blood and blood-forming organs (principal)
CPT/HCPCS: 36415; 80047; 80053; 85025

== ENCOUNTER 2022-06-23 09:11 | Outpatient (CLI) | payer MEDICARE, SELFPAY ==
[2022-06-23 09:24] LABS: Basophils Absolute Auto 0.1 K/mm3 (0.0-0.1); Basophils Percent Auto 0.8 % (0.2-1.2); Eosinophils Absolute Auto 0.1 K/mm3 (0-0.3); Eosinophils Percent Auto 1.6 % (0-4.4); Hematocrit 43.2 % (42.0-52.0); Hemoglobin 14.8 g/dL (14.0-18.0); Immature Granulocyte Absolute 0.02 K/mm3 (0.00-0.031); Immature Granulocyte Percent A 0.3 % (0-0.5); Immature Platelet Fraction Pct 7.1 % (0.9-11.2); Lymphocytes Absolute Auto 1.84 K/mm3 (0.9-3.2); Lymphocytes Percent Auto 28.6 % (18.3-44.2); Mean Corpuscular HGB Conc 34.3 g/dl (32-36); Mean Corpuscular Hemoglobin 31.2 pg (26-34); Mean Corpuscular Volume 91.1 fl (80-100); Mean Platelet Volume 10.7 fl (7.4-10.4); Monocytes Absolute Auto 0.6 K/mm3 (0.1-0.6); Monocytes Percent Auto 9.3 % (2.6-8.5); Neutrophils Absolute Auto 3.8 K/mm3 (1.3-6.7); Neutrophils Percent Auto 59.4 % (45.5-73.1); Platelet Count Result 134 k/mm3 (150-375); Red Blood Count 4.74 M/mm3 (4.6-6.20); White Blood Count 6.4 K/mm3 (4.5-10.0)
[2022-06-23 09:28] LABS: Blood Urea Nitrogen 21 mg/dL (8-26); Carbon Dioxide 27 mmol/L (22-30); Chloride 103 mmol/L (98-109); Estimated Glomerular Filt Rate 60; Glucose 105 mg/dL (70-105); Ionized Calcium (POC) 1.27 mmol/L (1.11-1.31); Potassium 4.4 mmol/L (3.5-4.9); Sodium 140 mmol/L (138-146)
[2022-06-23 11:55] LABS: Iron 92 ug/dL (49-181)
[2022-06-23 12:06] LABS: Alanine Aminotransferase 25 U/L (6-50); Albumin Level 4.4 g/dL (3.5-5.1); Alkaline Phosphatase 86 U/L (38-126); Anion Gap 5 mmol/L (8-16); Aspartate Amino Transferase 24 U/L (17-59); Bilirubin,Total 0.8 mg/dL (0.2-1.3); Blood Urea Nitrogen 21 mg/dL (9-20); CRP 0.6 mg/dL (<1.0); Calcium 9.3 mg/dL (8.4-10.2); Carbon Dioxide 30 mmol/L (22-30); Chloride 103 mmol/L (98-107); Estimated Glomerular Filt Rate > 60; Glucose 101 mg/dL (65-110); Potassium 4.4 mmol/L (3.4-5.0); Sodium 138 mmol/L (137-145)
[2022-06-23 12:07] LABS: Percent Iron Saturation 29 % (20-50)
[2022-06-23 12:19] LABS: Erythrocyte Sedimentation Rate 9 mm/hr (0-20)
== END 2022-06-23 09:12 | disposition home or self-care (01) ==
LOC: ANHLAB 09:14
PROVIDERS: PCP Internal Medicine; Visit Provider Internal Medicine Hematology & Oncology
DX: D75.89 Other specified diseases of blood and blood-forming organs (principal); E83.110 Hereditary hemochromatosis
CPT/HCPCS: 36415; 80047; 80053; 82728; 83540; 83550; 85025; 85055; 85652; 86140

== ENCOUNTER 2022-10-03 08:42 | Outpatient (CLI) | payer MEDICARE, SELFPAY ==
[2022-10-03 09:04] LABS: Basophils Absolute Auto 0.1 K/mm3 (0.0-0.1); Basophils Percent Auto 0.9 % (0.2-1.2); Eosinophils Absolute Auto 0.1 K/mm3 (0-0.3); Eosinophils Percent Auto 2.1 % (0-4.4); Hematocrit 44.2 % (42.0-52.0); Hemoglobin 15.1 g/dL (14.0-18.0); Immature Granulocyte Absolute 0.02 K/mm3 (0.00-0.031); Immature Granulocyte Percent A 0.3 % (0-0.5); Immature Platelet Fraction Pct 7.2 % (0.9-11.2); Lymphocytes Absolute Auto 1.77 K/mm3 (0.9-3.2); Lymphocytes Percent Auto 30.9 % (18.3-44.2); Mean Corpuscular HGB Conc 34.2 g/dl (32-36); Mean Corpuscular Hemoglobin 31.2 pg (26-34); Mean Corpuscular Volume 91.3 fl (80-100); Mean Platelet Volume 10.9 fl (7.4-10.4); Monocytes Absolute Auto 0.5 K/mm3 (0.1-0.6); Monocytes Percent Auto 9.1 % (2.6-8.5); Neutrophils Absolute Auto 3.3 K/mm3 (1.3-6.7); Neutrophils Percent Auto 56.7 % (45.5-73.1); Platelet Count Result 106 k/mm3 (150-375); Red Blood Count 4.84 M/mm3 (4.6-6.20); Red Cell Distribution Width 12.5 % (11.5-14.5); White Blood Count 5.7 K/mm3 (4.5-10.0)
[2022-10-03 14:29] LABS: Alanine Aminotransferase 20 U/L (6-50); Albumin Level 4.2 g/dL (3.5-5.1); Alkaline Phosphatase 87 U/L (38-126); Anion Gap 5 mmol/L (8-16); Aspartate Amino Transferase 27 U/L (17-59); Bilirubin,Total 0.7 mg/dL (0.2-1.3); Blood Urea Nitrogen 25 mg/dL (9-20); Calcium 9.2 mg/dL (8.4-10.2); Carbon Dioxide 28 mmol/L (22-30); Chloride 103 mmol/L (98-107); Estimated Glomerular Filt Rate > 60; Glucose 94 mg/dL (65-110); Potassium 4.2 mmol/L (3.4-5.0); Sodium 136 mmol/L (137-145)
[2022-10-03 14:40] LABS: Iron 94 ug/dL (49-181)
[2022-10-03 14:50] LABS: Percent Iron Saturation 29 % (20-50)
== END 2022-10-03 08:43 | disposition home or self-care (01) ==
LOC: ANHLAB 08:48
PROVIDERS: Visit Provider Internal Medicine Hematology & Oncology
DX: E83.110 Hereditary hemochromatosis (principal)
CPT/HCPCS: 36415; 80053; 82728; 83540; 83550; 85025; 85055

== ENCOUNTER 2023-06-06 10:55 | Outpatient (CLI) | payer MEDICARE, SELFPAY ==
[2023-06-06 11:25] LABS: Basophils Percent Auto 0.5 % (0.2-1.2); Eosinophils Absolute Auto 0.1 K/mm3 (0-0.3); Eosinophils Percent Auto 0.9 % (0-4.4); Hematocrit 43.7 % (42.0-52.0); Hemoglobin 15.1 g/dL (14.0-18.0); Immature Granulocyte Absolute 0.03 K/mm3 (0.00-0.031); Immature Granulocyte Percent A 0.4 % (0-0.5); Lymphocytes Absolute Auto 1.82 K/mm3 (0.9-3.2); Lymphocytes Percent Auto 24.1 % (18.3-44.2); Mean Corpuscular HGB Conc 34.6 g/dl (32-36); Mean Corpuscular Hemoglobin 31.2 pg (26-34); Mean Corpuscular Volume 90.3 fl (80-100); Mean Platelet Volume 10.8 fl (7.4-10.4); Monocytes Absolute Auto 0.6 K/mm3 (0.1-0.6); Monocytes Percent Auto 8.2 % (2.6-8.5); Neutrophils Percent Auto 65.9 % (45.5-73.1); Platelet Count Result 177 k/mm3 (150-375); Red Blood Count 4.84 M/mm3 (4.6-6.20); Red Cell Distribution Width 12.5 % (11.5-14.5); White Blood Count 7.5 K/mm3 (4.5-10.0)
[2023-06-06 13:24] LABS: Iron 114 ug/dL (49-181)
[2023-06-06 13:35] LABS: Alanine Aminotransferase 19 U/L (6-50); Albumin Level 4.6 g/dL (3.5-5.1); Alkaline Phosphatase 94 U/L (38-126); Anion Gap 7 mmol/L (4-12); Aspartate Amino Transferase 21 U/L (17-59); Bilirubin,Total 0.9 mg/dL (0.2-1.3); Blood Urea Nitrogen 18 mg/dL (9-20); Calcium 9.6 mg/dL (8.4-10.2); Carbon Dioxide 24 mmol/L (22-30); Chloride 106 mmol/L (98-107); Estimated Glomerular Filt Rate > 60; Glucose 106 mg/dL (65-110); Potassium 4.7 mmol/L (3.4-5.0); Sodium 137 mmol/L (137-145)
[2023-06-06 15:03] LABS: Percent Iron Saturation 38 % (20-50)
== END 2023-06-06 10:56 | disposition home or self-care (01) ==
LOC: ANHLAB 10:58
PROVIDERS: Nurse Practitioner Family; Visit Provider Internal Medicine Hematology & Oncology
DX: E83.119 Hemochromatosis, unspecified (principal)
CPT/HCPCS: 36415; 80053; 82728; 83540; 83550; 85025